=== PATIENT | male | born 1940 | race Caucasian/White ===

== ENCOUNTER 2017-03-04 22:33 | Inpatient (IN) | payer OTHER, MEDICARE ==
[~2017-03-04] VITALS: Ht 167.6 cm; Wt 60.8 kg
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
--- NOTE | ~2017-03-04 | DS ---
Discharge Summary [facility] [address] [place]. [address] NAME: MELVIN HSARP : 42 STATUS : DIS IN PAT#: [id number] AGE: 76 ADM/REG DATE : 03/05/17 MR#: [id number] REPORT SERV DATE: 03/08/17 DICTATED BY: FAIZAN ALDANA DATE: 03/07/17 REPORT STATUS : Draft TRANSCRIBED BY: MODL DATE: 03/07/17 ADMISSION DATE: 03/05/2017 DISCHARGE DATE: 03/07/2017 REASON FOR ADMISSION: Acute metabolic encephalopathy. DISCHARGE DIAGNOSES: 1. Acute metabolic encephalopathy secondary to polypharmacy, now resolved. 2. Left-sided hemiparesis secondary to minimal cervical cord compression with cervical pathology. 3. Possible patent foramen ovale with positive bubble study. 4. Parkinson disease. 5. Type 2 diabetes with an episode of hypoglycemia. 6. Hypertension. 7. Chronic obstructive pulmonary disease with chronic hypoxic respiratory failure. PERTINENT IMAGING PERFORMED THIS ADMISSION: 1. MRI brain without contrast, 03/05/2017, impression; atrophy and chronic microvascular white matter ischemic changes. Otherwise, negative exam. 2. MRI cervical spine on 03/05/2017, impression; evaluation is limited. At C3-C4, there is posterior annular bulging with no definite cord impression or significant foraminal narrowing. At C4-C5, posterior annular bulging or protrusion with minimal impression on the anterior spinal cord. At C5-C6, posterior annular bulging with no definite cord impression or significant foraminal narrowing. At C6-C7, uncinate osteophytes and posterior annular bulging with slight impression on the anterior spinal cord. At C7- T1, minimal posterior annular bulging with no cord impression or significant foraminal narrowing. 3. MRA neck, 03/05/2017 negative. 4. MRA head, 03/05/2017 negative. 5. Transthoracic echocardiogram, 03/05/2017, summary; technically limited study. Borderline left ventricular systolic function with an EF of 50%. Normal right ventricular chamber size and systolic function. Moderate diastolic dysfunction. No significant valvular regurgitation or stenosis. Bubble study is positive. HOSPITAL COURSE: Please refer to the history and physical dictated by the admitting physician for full history of this patient. Briefly, the patient presented with acute metabolic encephalopathy likely in the setting of polypharmacy. For his acute metabolic encephalopathy, Neurology was consulted, and he underwent the aforementioned imaging. His medications were managed per Neurology with adjustments made and decreasing some doses of his medications. The details of which can be found below. With these changes in his medications, his acute metabolic encephalopathy resolved. At the day of discharge, he is back to his baseline, completely alert and oriented. He will follow up with Neurology in two to three months for further evaluation and alteration in medications as needed. Discharge Summary [address] [place]. [address] NAME: MELVIN SHARP : 42 STATUS : DIS IN PAT#: [id number] AGE: 76 ADM/REG DATE : 03/05/17 MR#: [id number] REPORT SERV DATE: 03/08/17 DICTATED BY: FAIZAN ALDANA DATE: 03/07/17 REPORT STATUS : Draft TRANSCRIBED BY: TEJAS DATE: 03/07/17 On neurology's exam of the patient, he was found to have left-sided hemiparesis most notably left upper extremity weakness that prompted MRI C-spine with the above findings. The patient did present with neck pain. It has been long-standing for several years, and so given his pain and minimal spinal cord impression from his cervical pathology, Ortho Spine was consulted. Ortho Spine did not feel that an urgent surgical procedure is needed though the patient desired a surgical intervention. He potentially benefit with improvement in his neck pain and resolution in his neurological findings. The plan will be for the patient to follow up with Ortho Spine approximately two to four weeks after discharge, at which time, surgery could be discussed further at that time. The patient did undergo an echocardiogram given initial concern for acute stroke. The echocardiogram did reveal some diastolic dysfunction, but then also revealed positive bubble study concerning for possible PFO. Per Neurology's recommendation, the patient will be discharged with both aspirin and Plavix and again we will follow up with them in a few months. For his Parkinson disease, there were some changes made to his medications, most prominently was a decrease in his amantadine dosing, and again he will follow up with Neurology as an outpatient. For his type 2 diabetes, the patient was not administered insulin while here though he did have an episode of hypoglycemia this morning to the 50s though he was fairly asymptomatic with that. This was felt to be secondary to his poor p.o. intake the night prior and diabetic diet. The patient did tell me at home he eats "whatever he wants." We have advised that he resume his metformin on discharge. DISCHARGE MEDICATIONS: Amantadine 100 mg p.o. daily, this is reduced from 100 b.i.d. on admission; 81 mg of aspirin p.o. daily; 10 mg of BuSpar p.o. b.i.d.; 75 mg of Plavix p.o. daily; 30 mg of Cymbalta p.o. daily; 10 mg of Zetia p.o. daily; 300 mg of gabapentin p.o. four times per day, this was reduced from 800 mg three times per day on admission; 25 mg of losartan p.o. daily; 30 mg of mirtazapine p.o. at bedtime, this is increased from 15 mg on admission; multivitamin tablet p.o. daily; 12.5 mg p.o. metoprolol tartrate b.i.d.; 5 mg of Ditropan p.o. twice per day; albuterol inhaler p.r.n. for shortness of breath; Symbicort two puffs inhaled twice per day; 500 mg p.o. metformin daily along with 1000 mg of p.o. metformin in the evening; nitroglycerin sublingually p.r.n. for chest pain; vitamin D3 1000 units p.o. daily and 1000 mg of Yeoman-3 fatty acids p.o. daily. FOLLOWUP: As mentioned prior, the patient will follow up with Orthopedics in two to four weeks for further discussion of possible surgical intervention given his cervical pathology associated with some neurologic deficits and pain. He will also follow up with Neurology in the coming months. At which time, his current medication doses which had been reduced due to his acute metabolic encephalopathy can be discussed and further altered as needed. Again, he will be discharged with aspirin and Plavix for presumed PFO and again we will follow up with Neurology in a few months for that. Discharge Summary [place] [id number] [facility] [place]. [address] NAME: MELVIN SHARP : 42 STATUS : DIS IN PAT#: [id number] AGE: 76 ADM/REG DATE : 03/05/17 MR#: [id number] REPORT SERV DATE: 03/08/17 DICTATED BY: FAIZAN ALDANA DATE: 03/07/17 REPORT STATUS : Draft TRANSCRIBED BY: TEJAS DATE: 03/07/17 The patient will be discharged with home health physical therapy as well per their recommendations after working with him as an inpatient. Approximately 45 minutes were spent coordinating the discharge of this patient. MARCE/TEJAS Faizan Aldana MD / [id number] CC: MD ADRI Shen PANKAJ
--- NOTE | ~2017-03-04 | HP ---
History And Physical [facility] [address] [facility] [place]. [address] NAME: MELVIN REYES : 42 STATUS : ADM Fabian PAT#: [id number] AGE: 76 ADM/REG DATE : 03/04/17 MR#: [id number] REPORT SERV DATE: 03/05/17 DICTATED BY: ZAID YIP DATE: 03/05/17 REPORT STATUS : Draft TRANSCRIBED BY: MODL DATE: 03/05/17 DATE OF ADMISSION: 03/04/2017 CHIEF COMPLAINT: Mental status changes and sleepiness. HISTORY OF PRESENT ILLNESS: This is a 76-year-old male with a history of COPD, hypertension, and diabetes who presents to the Emergency Room at [facility], with the above-mentioned complaint. History was obtained from the patient and reviewing data available on the [facility] system as well. According to available data, Mr. Reyes, who was just released from this hospital a couple days ago, was fine when he went home according to his , but yesterday he started having more mental status changes, some confusion, and she says he was excessively sleepy. He had come to the hospital the last time with similar symptoms but had dehydration and other medical problems which were responsible. She thought he was going back to such situation and decided to bring him to the emergency room. She says she could not even talk to him or wake him up, and he did not know where he was. In the emergency room, initial workup revealed some altered mental status and confusion, he had respiratory acidosis, and the Hospitalist Service was asked to admit him for further evaluation and treatment. At the time of my evaluation, I was able to wake him up and he seemed to be well oriented. He does, however, drift off every now and then, sometimes when I am talking to him. He states he is in no distress at this point. He denied any chest pain or palpitations. He had no orthopnea. He had no cough, hemoptysis, night sweats, or weight loss. He has not had any recent falls or loss of consciousness. No history of fevers, chills, nausea, vomiting, diarrhea, hematemesis, hematochezia, or hematuria. No other history of recent travel or exposures other than those mentioned above. PAST MEDICAL HISTORY: Significant for diabetes and hypertension. He has been taken off his insulin and left on metformin which he has been following. He also has a history of COPD. SOCIAL HISTORY: He does not smoke, drink, or use recreational drugs at this time. FAMILY HISTORY: Noncontributory. MEDICATIONS: His medications at home were reviewed by me in the chart today and reordered by me. REVIEW OF SYSTEMS: As in history of present illness. All other systems were reviewed in detail and are quite unremarkable. PHYSICAL EXAMINATION: GENERAL: This is a pleasant 76-year-old not in any acute distress. He is alert, awake, History And Physical [address] [address] NAME: MELVIN REYES : 42 STATUS : ADM Fabian PAT#: [id number] AGE: 76 ADM/REG DATE : 03/04/17 MR#: [id number] REPORT SERV DATE: 03/05/17 DICTATED BY: ZAID YIP DATE: 03/05/17 REPORT STATUS : Draft TRANSCRIBED BY: TEJAS DATE: 03/05/17 oriented to time, place, and person. HEENT: His head is atraumatic and normocephalic. His pupils are equal and reacting to light and accommodating. External ocular muscles are intact. Membranes are moist and pink. Sclerae are nonicteric. NECK: Supple with no jugular venous distention, lymphadenopathy, or thyromegaly. LUNGS: Clear to auscultation with no wheezes, rubs, or crackles. HEART: Heart sounds are regular with no murmurs, rubs, or gallops. ABDOMEN: Soft and nontender. Bowel sounds are present. EXTREMITIES: No cyanosis, clubbing, or edema. NEUROLOGIC: Grossly intact. He is able to move all four extremities. Motor strength is equal in all four extremities. Higher functions appear intact. He, however, does have some lethargy when I am talking to him. VITAL SIGNS: His vital signs today show a temperature of 98.4, pulse 73, respirations 22 a minute, blood pressure is 164/71, and oxygen saturations are 92% breathing 2 L of oxygen via nasal cannula. LABORATORY DATA: Reviewed on the [facility] system showed a pH of 7.38, pCO2 was 48, pO2 of 84, and bicarb of 27.4; this was on 2 L of oxygen. CMP showed a BUN of 15 with a creatinine of 1.41 which is slightly up from his baseline. Otherwise normal CMP. Glucose was 93 at this time. Troponin was 0.02 and CBC showed a white blood cell count of 5600, hemoglobin was 13.3, hematocrit 39.3, and platelet count was 137,000. Urinalysis was grossly unremarkable. Films of the CT scan of his brain and chest x-ray were reviewed by me on the PACS today and interpreted by me. Per my interpretation, the CT of the brain did not reveal any acute pathology. Chest x-ray films were reviewed, there is prior sternotomy, otherwise clear. No lobar consolidations or effusions. A 12-lead EKG done in the emergency room was reviewed and interpreted by me, normal sinus rhythm at a rate of [address]-T changes. There is QT prolongation with a QTc of 506. His lactate was 1.9 today. PLAN: We will admit Mr. Reyes to the Hospitalist Service with telemetry for close monitoring for a 24-hour observation. The etiology of his mental status changes is unclear at this time. We will go ahead and get an MRI of his brain to further evaluate him. We will also get a Neurology consultation in the morning. We will continue all other home medications and treatments and place him on bronchodilator treatments and continue oxygen therapy. We will also check his TSH. He will be placed on unfractionated heparin for DVT prophylaxis while he is here. I have discussed above plans with the patient and his , questions were answered, and they are agreeable to the above recommendations. Hospitalist Service will be following him during his stay here. MR/TEJAS History And Physical [address] [address] NAME: MELVIN REYES : 42 STATUS : ADM Fabian PAT#: [id number] AGE: 76 ADM/REG DATE : 03/04/17 MR#: [id number] REPORT SERV DATE: 03/05/17 DICTATED BY: ZAID YIP DATE: 03/05/17 REPORT STATUS : Draft TRANSCRIBED BY: TEJAS DATE: 03/05/17 Zaid Yip M.D. / [id number] CC: Michele Lara DO
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
[~2017-03-04 22:33] MED LIST: *UNABLE1; B121000P IM; BEN25 PO; BUSPAR10 PO; COZ25 PO; CYANOCOBALAMIN; CYMBALTA30 PO; CYMBALTA60 PO; DITRO5 PO; DSS PO; FISH OIL300 MG PO; FISH-EPA1000 MG PO; FLONASE NAS; GGEXPUD PO; GLUCOPHAGE1000 MG PO; GLUCOTROL5 PO; GLUCPH PO; HALF81 PO; HUMULIN N1 ML SC; INHALER RX INH; INSNOVN SC; KLOR-CON M2020 MEQ PO; L40 PO; LOP25 PO; METOPROLOL PO; MULTIVIT/MIN PO; NEUR800 PO; NIACIN; NITROSTAT0.4 MG SL; OTC EYE DROP OPH; OTC VITAMIN D PO; OXYBUTYNIN PO; PLAVIX PO; PROAIR HFA INH; PROVHFA INH; REM15 PO; SLO-NIACIN500 MG PO; SYMBICORT 160/41 INH INH; SYMM100 PO; THERGRANM PO; TUMSROLL PO; VITAMIN D31000 UNIT PO; ZETIA PO; ZYRTEC ALLGY10 MG PO; [UNRECOGNIZED DRUG - OTHER] PO
[2017-03-04 23:44] LABS: ALLENS TEST Pos; BE (BASE EXCESS) 1.6 MEQ/L (0 +/- 2.5); CARBOXYHEMOGLOBIN 1.9 % (0-3); DEVICE NC; HCO3 (ACTUAL BICARBONATE) 27.4 MEQ/L (23-27); HEMOBLOGIN CONTENT 13.4 G/DL (14-18); INSTRUMENT SERIAL # 8087; METHEMOGLOBIN 0.1 % (0-3); O2 CONTENT 17.6 VOL% (18-24); OPERATOR ID 33449; PCO2 (CO2 TENSION) 48 MMHG (35-45); PO2 (O2 TENSION) 84 MMHG (79-93); SAMPLE Arterial; pH 7.38 (7.37-7.43)
[2017-03-04 23:59] LABS: BASOPHILS 0.2 %; BASOPHILS ABSOLUTE 0.01 10/3/uL (0.0-0.16); EOSINOPHILS 3.4 %; EOSINOPHILS ABSOLUTE 0.19 10/3/uL (0.0-0.53); ER CBC TAT 0 Hrs 09 Mins; HEMATOCRIT 39.3 % (40.0-51.0); HEMOGLOBIN 13.3 g/dL (13.6-17.8); IMMATURE GRANULOCYTES 0.2 %; IMMATURE GRANULOCYTES ABSOLUTE 0.01 10/3/uL (0.0-0.11); LYMPHOCYTES 16.5 %; LYMPHOCYTES ABSOLUTE 0.92 10/3/uL (0.67-4.30); MANUAL DIFF NO %; MEAN CORPUS HGB CONC 33.8 g/dL (32.0-36.0); MEAN CORPUSCULAR HEMOGLOB 31.9 pg (26.0-34.0); MEAN CORPUSCULAR VOLUME 94.2 fL (80-100); MONOCYTES 12.6 %; NEUTROPHILS 67.1 %; NEUTROPHILS ABSOLUTE 3.73 10/3/uL (2.02-8.40); PLATELET COUNT 137 10/3/uL (150-400); RBC DISTRIBUTION WIDTH 14.4 % (12.0-16.0); RED CELL COUNT 4.17 10/6/uL (4.7-6.1); WHITE BLOOD CELLS 5.6 10/3/uL (4.5-10.5)
[2017-03-05 00:16] LABS: LACTATE 1.9 MMOL/L (0.3-2.4)
[2017-03-05 00:37] LABS: A/G RATIO 0.9 (0.7-1.9); ALBUMIN 3.4 G/DL (3.5-5.0); ALKALINE PHOSPHATASE 101 U/L (45-117); BUN (BLOOD UREA NITROGEN) 15 MG/DL (6-23); CALCIUM, SERUM 8.9 MG/DL (8.5-10.4); CHLORIDE, SERUM 107 MMOL/L (96-112); CO2 (CARBON DIOXIDE) 27 MMOL/L (24-34); CREATININE 1.41 MG/DL (0.70-1.30); GFR AFRICAN AMERICAN 56 ML/MIN (>=60); GFR NON AFRICAN AMERICAN 49 ML/MIN (>=60); GLUCOSE, SERUM 93 MG/DL (60-99); POTASSIUM, SERUM 3.7 MMOL/L (3.5-5.3); SGPT(ALT) 21 U/L (5-65); SODIUM, SERUM 145 MMOL/L (135-148); TOTAL BILIRUBIN 0.6 MG/DL (0-1.2); TOTAL PROTEIN 7.4 G/DL (6.0-8.5); TROPONIN I <0.02 NG/ML (<0.05)
[2017-03-05 00:38] LABS: SGOT(AST) 29 U/L (5-40)
[2017-03-05 01:50] LABS: ASCORBIC ACID (UR NOT ORDER) NEG (NEG); BILIRUBIN, URINE NEGATIVE (NEG); ER URINALYSIS TAT 0 Hrs 00 Mins; KETONE, URINE NEGATIVE (NEG); LEUKOCYTE ESTERASE(NOT OR NEG (NEG); NITRITE (URINE) NEG (NEG); WBC (NOT ORDERED) (RFLEX) 1 (0-5)
[2017-03-05 02:04] LABS: AMPHETAMINES (NOT ORD) NEG (NEG); BARBITURATES (NOT ORDERED NEG (NEG); BENZODIAZEPINES (NOT ORD) NEG (NEG); CANNABINOIDS (THC) NEG (NEG); COCAINE (NOT ORDERED) NEG (NEG); OPIATES NEG (NEG); PHENCYCLIDINE(PCP) NEG (NEG)
[2017-03-05 02:05] LABS: TRICYCLICS NEG (NEG)
[2017-03-05 07:05] LABS: BASOPHILS 0.2 %; BASOPHILS ABSOLUTE 0.01 10/3/uL (0.0-0.16); EOSINOPHILS ABSOLUTE 0.19 10/3/uL (0.0-0.53); HEMATOCRIT 37.9 % (40.0-51.0); HEMOGLOBIN 12.5 g/dL (13.6-17.8); IMMATURE GRANULOCYTES 0.2 %; IMMATURE GRANULOCYTES ABSOLUTE 0.01 10/3/uL (0.0-0.11); LYMPHOCYTES 17.3 %; LYMPHOCYTES ABSOLUTE 0.83 10/3/uL (0.67-4.30); MEAN CORPUSCULAR HEMOGLOB 31.4 pg (26.0-34.0); MEAN CORPUSCULAR VOLUME 95.2 fL (80-100); MEAN PLATELET VOLUME 9.3 fL (9.2-13.0); MONOCYTES 14.6 %; NEUTROPHILS 63.7 %; NEUTROPHILS ABSOLUTE 3.06 10/3/uL (2.02-8.40); PLATELET COUNT 119 10/3/uL (150-400); RBC DISTRIBUTION WIDTH 14.4 % (12.0-16.0); RED CELL COUNT 3.98 10/6/uL (4.7-6.1); WHITE BLOOD CELLS 4.8 10/3/uL (4.5-10.5)
[2017-03-05 07:08] LABS: MANUAL DIFF NO %
[2017-03-05 07:18] LABS: BUN (BLOOD UREA NITROGEN) 14 MG/DL (6-23); CALCIUM, SERUM 8.6 MG/DL (8.5-10.4); CHLORIDE, SERUM 107 MMOL/L (96-112); CO2 (CARBON DIOXIDE) 29 MMOL/L (24-34); CREATININE 1.21 MG/DL (0.70-1.30); GFR AFRICAN AMERICAN 68 ML/MIN (>=60); GFR NON AFRICAN AMERICAN 59 ML/MIN (>=60); GLUCOSE, SERUM 87 MG/DL (60-99); PHOSPHORUS, SERUM 3.2 MG/DL (2.5-4.5); POTASSIUM, SERUM 3.8 MMOL/L (3.5-5.3); SODIUM, SERUM 142 MMOL/L (135-148)
[2017-03-06 06:32] LABS: BASOPHILS 0.2 %; BASOPHILS ABSOLUTE 0.01 10/3/uL (0.0-0.16); EOSINOPHILS 4.8 %; EOSINOPHILS ABSOLUTE 0.24 10/3/uL (0.0-0.53); HEMATOCRIT 41.2 % (40.0-51.0); IMMATURE GRANULOCYTES 0.2 %; IMMATURE GRANULOCYTES ABSOLUTE 0.01 10/3/uL (0.0-0.11); LYMPHOCYTES 10.8 %; LYMPHOCYTES ABSOLUTE 0.54 10/3/uL (0.67-4.30); MEAN CORPUSCULAR HEMOGLOB 31.9 pg (26.0-34.0); MEAN CORPUSCULAR VOLUME 93.8 fL (80-100); MEAN PLATELET VOLUME 9.3 fL (9.2-13.0); MONOCYTES 11.6 %; MONOCYTES ABSOLUTE 0.58 10/3/uL (0.21-1.20); NEUTROPHILS 72.4 %; NEUTROPHILS ABSOLUTE 3.64 10/3/uL (2.02-8.40); PLATELET COUNT 126 10/3/uL (150-400); RBC DISTRIBUTION WIDTH 14.2 % (12.0-16.0); RED CELL COUNT 4.39 10/6/uL (4.7-6.1)
[2017-03-06 06:33] LABS: MANUAL DIFF NO %
[2017-03-06 07:05] LABS: BUN (BLOOD UREA NITROGEN) 14 MG/DL (6-23); CALCIUM, SERUM 9.4 MG/DL (8.5-10.4); CHLORIDE, SERUM 106 MMOL/L (96-112); CO2 (CARBON DIOXIDE) 29 MMOL/L (24-34); FERRITIN 146 NG/ML (26-388); GFR AFRICAN AMERICAN 76 ML/MIN (>=60); GFR NON AFRICAN AMERICAN 66 ML/MIN (>=60); GLUCOSE, SERUM 89 MG/DL (60-99); POTASSIUM, SERUM 3.7 MMOL/L (3.5-5.3); SODIUM, SERUM 143 MMOL/L (135-148)
[2017-03-06 07:30] LABS: FOLATE 22.1 NG/ML (>5.2)
[2017-03-06 07:31] LABS: PROCALCITONIN 0.08 ng/mL (<0.5)
[2017-03-07 06:37] LABS: BASOPHILS 0.7 %; BASOPHILS ABSOLUTE 0.03 10/3/uL (0.0-0.16); EOSINOPHILS 6.1 %; EOSINOPHILS ABSOLUTE 0.28 10/3/uL (0.0-0.53); HEMATOCRIT 40.8 % (40.0-51.0); HEMOGLOBIN 13.9 g/dL (13.6-17.8); IMMATURE GRANULOCYTES 0.4 %; IMMATURE GRANULOCYTES ABSOLUTE 0.02 10/3/uL (0.0-0.11); LYMPHOCYTES 14.6 %; LYMPHOCYTES ABSOLUTE 0.67 10/3/uL (0.67-4.30); MANUAL DIFF NO %; MEAN CORPUS HGB CONC 34.1 g/dL (32.0-36.0); MEAN CORPUSCULAR HEMOGLOB 31.8 pg (26.0-34.0); MEAN CORPUSCULAR VOLUME 93.4 fL (80-100); MEAN PLATELET VOLUME 9.7 fL (9.2-13.0); MONOCYTES 12.6 %; MONOCYTES ABSOLUTE 0.58 10/3/uL (0.21-1.20); NEUTROPHILS 65.6 %; NEUTROPHILS ABSOLUTE 3.01 10/3/uL (2.02-8.40); PLATELET COUNT 139 10/3/uL (150-400); RBC DISTRIBUTION WIDTH 14.4 % (12.0-16.0); RED CELL COUNT 4.37 10/6/uL (4.7-6.1); WHITE BLOOD CELLS 4.6 10/3/uL (4.5-10.5)
[2017-03-07 06:41] LABS: INTERNATIONAL NORMAL RATI 1.1 UNITS (-)
[2017-03-07 06:45] LABS: BUN (BLOOD UREA NITROGEN) 15 MG/DL (6-23); CALCIUM, SERUM 9.1 MG/DL (8.5-10.4); CHLORIDE, SERUM 109 MMOL/L (96-112); CO2 (CARBON DIOXIDE) 29 MMOL/L (24-34); CREATININE 1.05 MG/DL (0.70-1.30); GFR AFRICAN AMERICAN 81 ML/MIN (>=60); GFR NON AFRICAN AMERICAN 70 ML/MIN (>=60); GLUCOSE, SERUM 75 MG/DL (60-99); POTASSIUM, SERUM 3.9 MMOL/L (3.5-5.3); SODIUM, SERUM 145 MMOL/L (135-148)
[2017-03-07] MEDS ORDERED: NEUR300 PO (12:13)
[2017-03-07] MEDS ORDERED: PLAVIX PO (12:13)
[2017-03-07] MEDS ORDERED: ASAB PO (12:14)
== END 2017-03-07 18:04 | disposition home health service (06) | DRG 71 ==
LOC: ER 22:33 → 5SO 23:59
PROVIDERS: Emergency Medicine; Internal Medicine; Internal Medicine Pulmonary Disease; Specialist
DX: G93.41 Metabolic encephalopathy (principal); J96.11 Chronic respiratory failure with hypoxia; E87.2 Acidosis; E11.65 Type 2 diabetes mellitus with hyperglycemia; Q21.1 Atrial septal defect; M50.30 Other cervical disc degeneration, unspecified cervical region; G95.29 Other cord compression; G81.94 Hemiplegia, unspecified affecting left nondominant side; G20 Parkinson's disease; J44.9 Chronic obstructive pulmonary disease, unspecified; I10 Essential (primary) hypertension; I25.10 Atherosclerotic heart disease of native coronary artery without angina pectoris; E03.9 Hypothyroidism, unspecified; Z95.1 Presence of aortocoronary bypass graft; Z85.51 Personal history of malignant neoplasm of bladder; Z79.899 Other long term (current) drug therapy; Z79.82 Long term (current) use of aspirin; Z88.8 Allergy status to other drugs, medicaments and biological substances
CPT/HCPCS: 36600; 70450; 70544; 70548; 70551; 71010; 72141-52; 80048; 80053; 80305; 81001; 82140; 82306; 82533; 82607; 82728; 82746; 82805; 82962; 83605; 83735; 84100; 84145; 84425; 84484; 85025; 85610; 87040; 93005; 93306; 94640; 97161-GP; 97165-GO; 97535-GO; 99285; A9270-GY; A9577; G8978-CJ-GP; G8979-CH-GP; G8987-CK-GO; G8988-CJ-GO